=== PATIENT | male | born 1955 | race Caucasian/White ===

== ENCOUNTER 2024-01-26 10:32 | Outpatient (CLI) | payer MEDICARE, MEDICAID ==
[2024-01-26] MEDS ORDERED: iohexol 300mg/ml 100ml inj. ONE (10:56)
== END 2024-01-26 23:59 | disposition home or self-care (01) ==
LOC: RAD 10:32
PROVIDERS: ATTEND Student in an Organized Health Care Education/Training Program
DX: C61 Malignant neoplasm of prostate (principal); I77.811 Abdominal aortic ectasia; R16.1 Splenomegaly, not elsewhere classified; M43.27 Fusion of spine, lumbosacral region; N28.1 Cyst of kidney, acquired
CPT/HCPCS: 74178; J3490; Q9967

== ENCOUNTER 2024-05-20 08:45 | Outpatient (CLI) | payer MEDICARE, MEDICAID ==
[~2024-05-20] VITALS: Ht 185.4 cm; Wt 108.9 kg
[2024-05-20] MEDS: albuterol 2.5 MG/3 ML nebule NEB ONE (09:25)
[2024-05-20 09:26] VITALS: PULSE 47; RESP 13; O2SAT 95
[2024-05-20 09:38] VITALS: PULSE 48; RESP 16
== END 2024-05-20 23:59 | disposition home or self-care (01) ==
LOC: RT 08:45
PROVIDERS: ATTEND Physician Assistant
DX: R06.02 Shortness of breath (principal)
CPT/HCPCS: 94060; 94760; Z7610